=== PATIENT | female | born 1955 ===

== ENCOUNTER 2024-06-16 08:02 | Inpatient (IN) | payer OTHER ==
[~2024-06-16] VITALS: Ht 160 cm; Wt 83.0 kg
[2024-06-16 08:59] LABS: URINE APPEARANCE Clear; URINE BILIRRUBIN Negative (NEGATIVE); URINE BLOOD Negative; URINE COLOR Yellow; URINE GLUCOSE Negative (NEGATIVE); URINE KETONE Negative (NEGATIVE); URINE LEUKOCYTE Negative; URINE NITRATE Negative; URINE PROTEIN Negative (NEGATIVE); URINE UROBILINOGEN 0.2 E.U./dl
[2024-06-16 09:03] LABS: URINE EPITHELIAL CELLS 2.4 uL (0.0-38.8)
[2024-06-16 09:04] LABS: HEMATOCRIT 37.4 % (36.0-45.00); HEMOGLOBIN 12.8 g/dL (12.0-15.00); MEAN CELL VOLUME 84.6 fL (80.00-100.00); MEAN CORPUSCULAR HEMOGLOBIN 28.8 pg (27.00-32.0); MEAN CORPUSCULAR HGB CONC 34.1 g/dl (32.0-36.0); PLATELET COUNT 267 K/uL (150-450); RED BLOOD COUNT 4.42 M/uL (4.00-6.00); RED CELL DISTRIBUTION WIDTH 14.5 % (11.5-14.5)
[2024-06-16 09:05] LABS: URINE BACTERIA 0 uL (0.0-1933); URINE RBC 1.6 uL (0.0-20.8); URINE WBC 1.2 uL (0.0-23.2)
[2024-06-16] MEDS ORDERED: ATACAND32 MG PO (09:09)
[2024-06-16] MEDS ORDERED: HYDROCHLOROTHIA25 MG PO (09:10)
[2024-06-16] MEDS ORDERED: PROBIOTIC250 MG PO (09:10)
[2024-06-16] MEDS ORDERED: ALLERGY RELIEF10 M4 PO (09:10)
[2024-06-16] MEDS ORDERED: TOPROL XL25 M1 PO (09:10)
[2024-06-16] MEDS ORDERED: PROTONIX40 MG PO (09:11)
[2024-06-16] MEDS ORDERED: MAGNESIUM250 M1 PO (09:11)
[2024-06-16 09:26] LABS: PROTHROMBIN TIME 10.5 SECONDS (9.0-11.5)
[2024-06-16 09:28] LABS: CALCIUM 9.5 mg/dL (8.5-10.1); CREATININE SERUM 0.91 mg/dL (0.55-1.02); GFR 61.85; POTASSIUM 4.02 mEq/L (3.5-5.1)
[2024-06-18] MEDS ORDERED: CIPROFLOXACIN IN 5 % DEXTROSE 400 MG/200 ML PIGGYBAG IV ONE (06:25)
[2024-06-18] MEDS ORDERED: BUPIVACAINE HCL/MPF 0.5% 30ML VIAL ONE (07:02)
[2024-06-18] MEDS ORDERED: BUPIVACAINE HCL 30 ML VIAL IJ ONE (07:30)
[2024-06-18] MEDS ORDERED: ISOPROPYL ALCOHOL 30 ML OUNCE TOP ONE (09:20)
[2024-06-18] MEDS ORDERED: KETOROLAC TROMETHAMINE 30 MG VIAL ONE (09:38)
[2024-06-18] MEDS ORDERED: SUGAMMADEX SODIUM 200 MG/2 ML VIAL IV ONE (09:39)
[2024-06-18] MEDS ORDERED: MIRALAX17 GM PO (10:08)
[2024-06-18] MEDS ORDERED: TYLENOL ARTHRI650 MG PO (10:08)
[2024-06-18] MEDS ORDERED: TRAMADOL HCL50 MG PO (10:08)
[2024-06-18] MEDS ORDERED: KETO10TA2 PO (10:08)
[2024-06-18] MEDS ORDERED: 0.9 % SODIUM CHLORIDE 1,000 ML IV SCH (10:15)
[2024-06-18] MEDS ORDERED: ENALAPRILAT DIHYDRATE 1.25 MG/ML VIAL IV PRN (10:15)
[2024-06-18] MEDS ORDERED: MORPHINE SULFATE 4 MG/ML CARTRIDGE IV PRN (10:15)
[2024-06-18] MEDS ORDERED: ONDANSETRON HCL 2 MG/ML VIAL IV PRN (10:15)
[2024-06-18] MEDS ORDERED: ACETAMINOPHEN 500 MG GEL..CAP PO SCH (12:00)
[2024-06-18] MEDS ORDERED: FAMOTIDINE/PF 20 MG/2 ML VIAL IV SCH (17:00)
[2024-06-18] MEDS ORDERED: METOPROLOL SUCCINATE 25 MG TAB.SR.24H PO SCH (17:00)
[2024-06-18] MEDS ORDERED: KETOROLAC TROMETHAMINE 30 MG VIAL IV SCH (17:00)
[2024-06-18] MEDS ORDERED: GABAPENTIN 100 MG CAPSULE PO SCH (17:00)
[2024-06-18] MEDS ORDERED: POLYETHYLENE GLYCOL 3350 17 GM BLIST.PACK PO SCH (17:00)
[2024-06-18] MEDS ORDERED: CANDESARTAN CILEXETIL 32 MG TABLET PO SCH (17:00)
[2024-06-19] MEDS ORDERED: GABAPENTIN100 M2 PO (04:58)
[2024-06-19] MEDS ORDERED: ENOXAPARIN SODIUM 40 MG/0.4 ML SYRINGE SUBCUTANEO SCH (09:00)
[2024-06-19] MEDS ORDERED: METOPROLOL SUCCINATE 25 MG TAB.SR.24H PO SCH (09:00)
== END 2024-06-19 13:29 | disposition home or self-care (01) | DRG 355 ==
LOC: O/R 06-18 05:10 → SURH 06-18 08:15 → SURG 06-18 13:06
PROVIDERS: ADMIT Surgery; ATTEND Surgery
PROC: 0KXM0ZZ Transfer Perineum Muscle, Open Approach (ICD-10-PCS; 2024-06-18)
PROC: 0WUF4JZ Supplement Abdominal Wall with Synthetic Substitute, Percutaneous Endoscopic Approach (ICD-10-PCS; principal; 2024-06-18 08:15)
DX: K43.2 Incisional hernia without obstruction or gangrene (principal)